=== PATIENT | female | born 1980 | race Caucasian/White ===

== ENCOUNTER 2017-06-30 19:27 | Emergency (ER) | payer OTHER ==
[2017-06-30] MEDS: HYDROcodone/APAP 5/325MG 1 TAB TABLET PO (20:38)
== END 2017-06-30 21:05 | disposition home or self-care (01) ==
LOC: ER 21:05
DX: S62.313A Displaced fracture of base of third metacarpal bone, left hand, initial encounter for closed fracture (principal); S62.311A Displaced fracture of base of second metacarpal bone, left hand, initial encounter for closed fracture; W19.XXXA Unspecified fall, initial encounter; Y93.89 Activity, other specified; Y99.8 Other external cause status; Y92.89 Other specified places as the place of occurrence of the external cause
CPT/HCPCS: 29125; 73130; 99284-25